=== PATIENT | female | born 1985 | race Two or more races ===

== ENCOUNTER 2021-09-30 13:12 | Emergency (ER) | payer SELFPAY ==
[2021-09-30] MEDS ORDERED: Sodium Chloride 0.9% 10 ML Syringe FLUSH PRN (13:24)
== END 2021-09-30 16:40 | disposition home or self-care (01) ==
LOC: JD.ED 13:12
DX: O99.891 Other specified diseases and conditions complicating pregnancy (principal); R10.30 Lower abdominal pain, unspecified; R10.2 Pelvic and perineal pain; Z3A.01 Less than 8 weeks gestation of pregnancy
CPT/HCPCS: 36415; 76817; 76817-26; 80053; 81001; 84702; 85025; 86900; 86901; 99284-25

== ENCOUNTER 2024-10-03 17:29 | Emergency (ER) | payer BC ==
[2024-10-03 18:14] LABS: BASOPHILS PERCENT AUTO 0.1 % (0.0-1.0); EOSINOPHILS PERCENT AUTO 0.2 % (0.0-6.0); HEMATOCRIT 35.8 % (37.0-47.0); IMMATURE GRAN ABSOLUTE AUTO 0.05 K/mm3 (0.00-0.05); IMMATURE GRAN PERCENT AUTO 0.5 % (0.0-0.4); LYMPHOCYTES ABSOLUTE AUTO 1.1 K/mm3 (1.0-4.8); LYMPHOCYTES PERCENT AUTO 9.5 % (24.0-44.0); MEAN CORPUSCULAR HEMOGLOBIN 26.5 pg (28.0-32.0); MEAN CORPUSCULAR HGB CONC 33.5 g/dl (32.0-36.0); MEAN PLATELET VOLUME 9.5 fl (9.4-12.3); MONOCYTES ABSOLUTE AUTO 0.5 K/mm3 (0.0-0.8); MONOCYTES PERCENT AUTO 4.5 % (0.0-8.0); NEUTROPHILS ABSOLUTE AUTO 9.4 K/mm3 (1.8-7.7); NEUTROPHILS PERCENT AUTO 85.2 % (41.0-71.0); PLATELET COUNT,PLT 235 K/mm3 (150-400); RED BLOOD CELL COUNT 4.53 M/mm3 (4.10-5.30); WHITE BLOOD CELL COUNT,WBC 11.07 K/mm3 (3.9-11.3)
[2024-10-03 18:38] LABS: A/G RATIO 0.7 (1-2); ANION GAP 13.2 (5-15); BILIRUBIN TOTAL 0.2 mg/dL (0.2-1.0); BUN/CREATININE RATIO 18.3 (14-18); CALCIUM 8.4 mg/dL (8.5-10.1); CREATININE 0.6 mg/dL (0.55-1.02); EST CRCL DRUG DOSING (CG) 108.7 mL/min; POTASSIUM,K 3.2 mEq/L (3.5-5.1); PROTEIN TOTAL,TP 7.4 g/dl (6.4-8.2)
[2024-10-03] MEDS: Alum Hydrox/Mag Hydrox/Simeth 30 ML, Lidocaine 2% 15 ML PO ONE (18:40)
[2024-10-03] MEDS: Ondansetron 4 MG/2 ML SDV IVPUSH ONE (18:40)
[2024-10-03] MEDS: Lactated Ringers 1,000 ML IV ONE (18:40)
[2024-10-03 18:51] LABS: APPEARANCE,URINE CLEAR (Clear); BILIRUBIN,URINE NEGATIVE (Negative); COLOR,URINE YELLOW (Yellow); GLUCOSE,URINE NEGATIVE (Negative); KETONES,URINE 2+ (Negative); LEUKOCYTE ESTERASE,URINE NEGATIVE (Negative); NITRITE,URINE NEGATIVE (Negative); OCCULT BLOOD,URINE NEGATIVE (Negative); PH,URINE 6.5 (5.0-8.0); PROTEIN,URINE TRACE (Negative); UROBILINOGEN,URINE 0.2 (0.2-1.0)
[2024-10-03 19:03] LABS: BACTERIA,URINE FEW /hpf (FEW); EPITHELIAL CELLS,URINE 20-30 /hpf (0-5); MUCUS,URINE MODERATE /hpf (FEW); RBC,URINE 0-5 /hpf (0-5); WBC,URINE 0-5 /hpf (0-5)
== END 2024-10-03 21:00 | disposition home or self-care (01) ==
LOC: JD.ED 17:29
DX: O21.9 Vomiting of pregnancy, unspecified (principal); O99.612 Diseases of the digestive system complicating pregnancy, second trimester; K21.9 Gastro-esophageal reflux disease without esophagitis; O99.891 Other specified diseases and conditions complicating pregnancy; R10.84 Generalized abdominal pain; Z79.899 Other long term (current) drug therapy; Z3A.17 17 weeks gestation of pregnancy
CPT/HCPCS: 36415; 76815; 80053; 81001; 85025; 96361; 96374; 99284; A9270; J2405; J7120; 99283

== ENCOUNTER 2025-03-12 00:30 | Inpatient (IN) | payer BC ==
[2025-03-12] MEDS: Lactated Ringers 1,000 ML IV SCH (00:50)
[2025-03-12 00:53] LABS: BASOPHILS ABSOLUTE AUTO 0.0 K/mm3 (0.0-0.2); BASOPHILS PERCENT AUTO 0.2 % (0.0-1.0); EOSINOPHILS ABSOLUTE AUTO 0.1 K/mm3 (0.0-0.4); EOSINOPHILS PERCENT AUTO 0.7 % (0.0-6.0); IMMATURE GRAN ABSOLUTE AUTO 0.04 K/mm3 (0.00-0.05); IMMATURE GRAN PERCENT AUTO 0.4 % (0.0-0.4); LYMPHOCYTES ABSOLUTE AUTO 2.4 K/mm3 (1.0-4.8); LYMPHOCYTES PERCENT AUTO 26.3 % (24.0-44.0); MEAN PLATELET VOLUME 10.0 fl (9.4-12.3); MONOCYTES ABSOLUTE AUTO 0.7 K/mm3 (0.0-0.8); MONOCYTES PERCENT AUTO 8.0 % (0.0-8.0); NEUTROPHILS ABSOLUTE AUTO 5.9 K/mm3 (1.8-7.7); NEUTROPHILS PERCENT AUTO 64.4 % (41.0-71.0); NRBC ABSOLUTE 0.00 (0.00-0.02); NRBC PERCENT 0.0 % (0.0-0.2); PLATELET COUNT,PLT 226 K/mm3 (150-400); RED BLOOD CELL COUNT 4.76 M/mm3 (4.10-5.30); WHITE BLOOD CELL COUNT,WBC 9.20 K/mm3 (3.9-11.3)
[2025-03-12] MEDS ORDERED: Ketorolac 30 MG/ML SDV ONE (00:56)
[2025-03-12] MEDS ORDERED: Dexamethasone 4 MG/ML 5 ML MDV ONE (00:56)
[2025-03-12] MEDS ORDERED: Morphine PF 10 MG/10 ML SDV ONE (00:56)
[2025-03-12] MEDS ORDERED: Ondansetron 4 MG/2 ML SDV ONE ×2 (00:56→00:57)
[2025-03-12] MEDS ORDERED: ePHEDrine 50 MG/ML SDV ONE (00:57)
[2025-03-12] MEDS ORDERED: Glycopyrrolate 0.2 MG/ML 2 ML SDV ONE (01:24)
[2025-03-12] MEDS: Citric Acid/Sodium Citrate Solution 30 ML Cup PO ONE (01:47)
[2025-03-12] MEDS ORDERED: Ondansetron 4 MG/2 ML SDV IVPUSH PRN (02:21)
[2025-03-12] MEDS ORDERED: fentaNYL 100 MCG/2 ML SDV IVPUSH PRN (02:21)
[2025-03-12] MEDS ORDERED: diphenhydrAMINE 50 MG/ML SDV IVPUSH PRN (02:21)
[2025-03-12] MEDS ORDERED: Ondansetron 4 MG/2 ML SDV IV PRN (02:35)
[2025-03-12] MEDS ORDERED: ePHEDrine 50 MG/ML SDV IVPUSH PRN (02:35)
[2025-03-12] MEDS ORDERED: Naloxone 0.4 MG/ML SDV IVPUSH PRN (02:35)
[2025-03-12] MEDS ORDERED: Lactated Ringers 1,000 ML IV SCH (05:00)
[2025-03-12] MEDS ORDERED: Citric Acid/Sodium Citrate Solution 30 ML Cup PO ONE (06:45)
[2025-03-12] MEDS: diphenhydrAMINE 50 MG/ML SDV IVPUSH PRN (08:34)
[2025-03-12] MEDS: Ketorolac 30 MG/ML SDV IVPUSH SCH (08:44)
[2025-03-12] MEDS ORDERED: Sodium Chloride 0.9% 10 ML Syringe FLUSH SCH (09:00)
[2025-03-12] MEDS: diphenhydrAMINE 50 MG/ML SDV IVPUSH ONE (12:23)
[2025-03-12] MEDS ORDERED: methylPREDNISolone Sodium Succinate 125 MG/2 ML SDV ONE (13:00)
[2025-03-12] MEDS ORDERED: EPINEPHrine 1 MG/ML SDV ONE (13:08)
[2025-03-13 06:45] LABS: MEAN PLATELET VOLUME 10.2 fl (9.4-12.3); NRBC ABSOLUTE 0.00 (0.00-0.02); NRBC PERCENT 0.0 % (0.0-0.2); PLATELET COUNT,PLT 171 K/mm3 (150-400); RED BLOOD CELL COUNT 3.31 M/mm3 (4.10-5.30); WHITE BLOOD CELL COUNT,WBC 11.90 K/mm3 (3.9-11.3)
== END 2025-03-14 13:20 | disposition home or self-care (01) | DRG 540 ==
LOC: JD.OB 00:30
PROVIDERS: ADMIT Obstetrics & Gynecology; ATTEND Obstetrics & Gynecology
PROC: 4A1HXCZ Monitoring of Products of Conception, Cardiac Rate, External Approach (ICD-10-PCS; 2025-03-12)
PROC: 10D00Z1 Extraction of Products of Conception, Low, Open Approach (ICD-10-PCS; principal; 2025-03-12 07:30)
DX: O90.81 Anemia of the puerperium (principal); Z3A.39 39 weeks gestation of pregnancy; Z37.0 Single live birth; D62 Acute posthemorrhagic anemia; O89.8 Other complications of anesthesia during the puerperium; H05.223 Edema of bilateral orbit; H53.8 Other visual disturbances
CPT/HCPCS: 01961; 36415; 59025; 85025; 85027; 86592; 86850; 86900; 86901; 99140; A9270-GY; J0171; J0690; J1100; J1200; J1308; J1596; J1885; J2210; J2274; J2405; J2765; J2919; J3490; J7120; J7121